=== PATIENT | female | born 1985 | race Two or more races ===

== ENCOUNTER → 2017-08-07 | Emergency (ER) | payer OTHER ==
[~2017-08-07] VITALS: Ht 160 cm; Wt 77.1 kg
[~2017-08-07] MED LIST: ACIDOPHILUS1 EAC3 PO; GARAMYCIN OPHT3.5 GM OP; PRENATAL1 TAB; TUSSI PRES-B L120 M1 PO
== END | disposition home or self-care (01) ==
LOC: ER 09:48
DX: B34.9 Viral infection, unspecified (principal)

== ENCOUNTER 2018-03-12 09:40 | Emergency (ER) | payer OTHER ==
[~2018-03-12] VITALS: Ht 160 cm; Wt 81.6 kg
== END 2018-03-12 17:00 | disposition home or self-care (01) ==
LOC: ER 09:40
DX: K52.9 Noninfective gastroenteritis and colitis, unspecified (principal)

== ENCOUNTER 2020-02-20 16:29 | Outpatient (CLI) | payer OTHER | END 2020-02-20 17:08 | disposition home or self-care (01) | LOC: LAB 16:29 | PROVIDERS: ATTEND Physical Medicine & Rehabilitation | DX: Z20.828 Contact with and (suspected) exposure to other viral communicable diseases (principal); Z11.59 Encounter for screening for other viral diseases ==

== ENCOUNTER 2020-09-12 10:28 | Emergency (ER) | payer OTHER ==
[~2020-09-12] VITALS: Ht 160 cm
[2020-09-12] MEDS ORDERED: PEPCID AC20 MG PO (16:05)
[2020-09-12] MEDS ORDERED: LEVSIN/SL0.125 MG PO (16:05)
== END 2020-09-12 16:20 ==
LOC: ER 10:28
DX: R10.11 Right upper quadrant pain (principal); R10.13 Epigastric pain

== ENCOUNTER 2020-09-13 09:39 | Emergency (ER) | payer OTHER ==
[~2020-09-13] VITALS: Ht 160 cm; Wt 96.2 kg
[~2020-09-13 09:39] MED LIST changes: +LEVSIN/SL0.125 MG PO; +PEPCID AC20 MG PO
== END 2020-09-13 15:57 | disposition home or self-care (01) ==
LOC: ER 09:39
DX: K29.60 Other gastritis without bleeding (principal); R10.13 Epigastric pain

== ENCOUNTER 2021-12-12 07:39 | Emergency (ER) | payer OTHER ==
[~2021-12-12] VITALS: Ht 162.6 cm; Wt 116.1 kg
== END 2021-12-12 10:28 | disposition home or self-care (01) ==
LOC: ER 07:39
DX: U07.1 COVID-19 (principal); B34.9 Viral infection, unspecified

== ENCOUNTER 2021-12-13 08:00 | Outpatient (CLI) | payer OTHER | END 2021-12-13 09:45 | disposition home or self-care (01) | LOC: ASH CLINIC 08:00 | PROVIDERS: ATTEND Emergency Medicine | DX: U07.1 COVID-19 (principal) ==

== ENCOUNTER 2022-07-01 09:51 | Emergency (ER) | payer OTHER ==
[~2022-07-01] VITALS: Ht 157.5 cm; Wt 87.1 kg
== END 2022-07-01 12:44 | disposition home or self-care (01) ==
LOC: ER 09:51
DX: R30.0 Dysuria (principal)